=== PATIENT | male | born 1935 | race Caucasian/White ===

== ENCOUNTER 2019-06-20 21:31 | Emergency (ER) | payer OTHER ==
[~2019-06-20] VITALS: Ht 172.7 cm; Wt 127.0 kg
[2019-06-20 21:47] VITALS: BP 00/000
== END 2019-06-20 21:47 ==
LOC: ER 21:31 → EDBD 21:31 → ER 21:47
DX: I46.9 Cardiac arrest, cause unspecified (principal)